=== PATIENT | female | born 1965 | race Caucasian/White ===

== ENCOUNTER 2023-04-11 10:20 | Outpatient (CLI) | payer OTHER, SELFPAY ==
--- NOTE | ~2023-04-11 | XR_ITS ---
XR knee RT 3V DATE: 04/11/2023 11:15 INDICATION: Chronic right knee pain TECHNIQUE: [place] and standing AP and lateral views COMPARISON: None FINDINGS: There is prominent valgus deformity. There is virtual obliteration of the lateral compartment joint space with mild depression/cupping of the lateral tibial plateau, with sclerosis and prominent periarticular spurring. There is joint space narrowing and prominent periarticular spurring at the patellofemoral compartment . Medial compartment joint space is relatively preserved. Mild to moderate suprapatellar knee joint effusion is suggested. No fracture, dislocation, periosteal reaction or bone destruction is detected. IMPRESSION: Severe lateral compartment moderately severe patellofemoral compartment osteoarthritis Suggestion of mild to moderate suprapatellar knee joint effusion Valgus deformity Reviewed, dictated and finalized at location L. R ENGINEER IMPRESSION: Severe lateral compartment moderately severe patellofemoral compart ment osteoarthritis Suggestion of mild to moderate suprapatellar knee joint effusion Valgus deformity
== END 2023-04-11 10:21 ==
LOC: MICIMG 10:26
PROVIDERS: PCP Pediatrics; Visit Provider Pediatrics
DX: M17.11 Unilateral primary osteoarthritis, right knee (principal)
CPT/HCPCS: 73562